=== PATIENT | male | born 1940 | race Caucasian/White ===

== ENCOUNTER 2017-08-05 09:58 | Outpatient (CLI) | payer OTHER | END 2017-08-05 10:03 | disposition home or self-care (01) | LOC: SONOGRAMA 09:58 | DX: E04.1 Nontoxic single thyroid nodule (principal) ==

== ENCOUNTER 2023-12-02 11:41 | Outpatient (CLI) | payer OTHER | END 2023-12-02 11:44 | disposition home or self-care (01) | LOC: SONOGRAMA 11:41 | PROVIDERS: ATTEND Pathology Anatomic Pathology & Clinical Pathology | DX: D34 Benign neoplasm of thyroid gland (principal); E07.89 Other specified disorders of thyroid; E04.2 Nontoxic multinodular goiter ==